=== PATIENT | female | born 1985 | race Caucasian/White ===

== ENCOUNTER 2016-08-19 22:32 | Emergency (ER) | payer OTHER ==
[2016-08-20] MEDS ORDERED: ONDANSETRON 4 MG VIAL ONE (02:44)
[2016-08-20] MEDS ORDERED: SODIUM CHLORIDE 0.9% 1,000 ML ONE (02:44)
== END 2016-08-20 05:29 | disposition home or self-care (01) ==
LOC: ER 22:32
CPT/HCPCS: 36415; 74176; 80053; 81001; 83690; 84703; 85025; 96361; 96374